=== PATIENT | female | born 1950 | race Caucasian/White ===

== ENCOUNTER → 2016-11-14 | Outpatient (CLI) | payer OTHER ==
[~2016-11-14] MED LIST: ALBUTEROL2.5 MG/0.5 INH; ASPIRIN81 M1 PO; BACTRIM DS 8001 TA1 PO; BASAGLAR K100 UNIT/1 SC; BENAZEPRIL HYDR20 MG PO; BREO ELLIPTA 11 EACH IH; CAPTOPRIL25 MG PO; CIPRO500 MG PO; DULE1ARO1 INH; FLAGYL500 MG PO; GLUCOPHAGE1000 MG PO; HYDROCHLOROTH12.5 M3 PO; HYDROCODONE BIT1 T11 PO; HYDRODIURIL25 MG PO; LANTUS100 U/ML SC; LISINOPRIL40 MG PO; LOVASTATIN20 MG PO; LOVENOX30 MG/0.3 SC; METFORMIN1000 MG PO; METOPROLOL TAR100 M1 PO; METOPROLOL100 MG PO; MEVACOR20 MG PO; MOBIC7.5 MG PO; MOTRIN800 MG PO; NORCO 7.5-3251 EACH PO; OMEPRAZOLE DR20 MG PO; ONE DAILY ESSE1 EACH PO; POTASSIUM CHLO10 ME4 PO; PRILOSEC20 M1 PO; PRILOSEC40 MG PO; VICODIN 5-3001 EACH PO; VICODIN 5/500 505 MG PO; VITAMIN D50000 I3 PO; ZANTAC 150150 MG PO; ZOFRAN8 M1 PO; [UNRECOGNIZED DRUG - OTHER] PO
== END | disposition home or self-care (01) ==
LOC: ORTHO 02:46
DX: S83.232A Complex tear of medial meniscus, current injury, left knee, initial encounter (principal); Z96.652 Presence of left artificial knee joint; X58.XXXA Exposure to other specified factors, initial encounter; Y93.89 Activity, other specified; Y92.89 Other specified places as the place of occurrence of the external cause; Y99.8 Other external cause status

== ENCOUNTER → 2016-11-21 | Day surgery (SDC) | payer OTHER ==
[~2016-11-21] VITALS: Ht 160 cm; Wt 82.6 kg
--- NOTE | ~2016-11-21 | PROC NOTE ---
[place], [place] PROCEDURE NOTE [id number] UNIT #: [id number] ROOM: DOCTOR: GARO WILDER MD BIRTHDATE: [birth year] DOS: 11/21/2016 PREOPERATIVE DIAGNOSIS: History of diverticulitis. POSTOPERATIVE DIAGNOSIS: Diverticulosis. PROCEDURE: Flexible sigmoidoscopy. ENDOSCOPIST: Garo Wilder MD DIRECTOR SAFETY COUNCIL: MS3. ANESTHESIA: MAC. INDICATIONS: This is a 65-year-old lady with a history of diverticulitis in the recent past who is here for a colonoscopy. The procedure and its complications were explained to the patient in detail. Complications that were discussed included but were not limited to bleeding, missed lesions and colon perforation. She agreed to proceed. DESCRIPTION OF PROCEDURE: After identifying the patient, the patient was brought to the operating suite and laid in the left lateral position. After IV sedation was administered, a timeout procedure was called and a digital rectal exam was performed. This was within normal limits. There was no blood or masses that could be palpated with the examining finger. At this point, an adult colonoscope was introduced into the anal canal and advanced sequentially into the rectum, sigmoid colon up to 40 cm from the anal verge. Despite multiple attempts, the scope could not be passed beyond this. Multiple areas of diverticulosis could be seen and also lot of edema could be seen in the area. Because the scope could not be advanced in a safe fashion beyond this area, I elected to abort the procedure at this point and withdraw the scope. The patient tolerated the procedure well. She was taken to the recovery room in stable fashion. Based on these findings, I would recommend the patient undergo another colonoscopy in 6 months or barium enema in the next few weeks. These findings were discussed with the patient's family and I will talk to the patient herself when she sees me in 2 weeks. Garo Wilder MD CM:PROCNOTE:PROCEDURE NOTE [id number] GARO WILDER MD
[2016-11-21 10:15] VITALS: BP 127/66
[2016-11-21 11:26] VITALS: BP 114/65
[2016-11-21 11:41] VITALS: BP 125/88
[2016-11-21 11:56] VITALS: BP 130/64
== END | disposition home or self-care (01) ==
LOC: SDC 11-17 08:00
DX: K57.30 Diverticulosis of large intestine without perforation or abscess without bleeding (principal); K63.89 Other specified diseases of intestine; E11.9 Type 2 diabetes mellitus without complications; J44.9 Chronic obstructive pulmonary disease, unspecified; F32.9 Major depressive disorder, single episode, unspecified; I10 Essential (primary) hypertension; K21.9 Gastro-esophageal reflux disease without esophagitis; Z90.710 Acquired absence of both cervix and uterus; Z98.51 Tubal ligation status; Z96.652 Presence of left artificial knee joint; Z80.9 Family history of malignant neoplasm, unspecified; Z53.8 Procedure and treatment not carried out for other reasons

== ENCOUNTER → 2017-02-06 | Outpatient (CLI) | payer OTHER | END | disposition home or self-care (01) | LOC: ORTHO 02:04 | DX: M16.12 Unilateral primary osteoarthritis, left hip (principal); Z96.652 Presence of left artificial knee joint ==

== ENCOUNTER → 2017-03-06 | Outpatient (CLI) | payer OTHER ==
[~2017-03-06] MED LIST changes: +NORCO 5-325 TA1 EACH PO; +NORVASC5 MG PO; +XANAX0.5 MG PO
--- NOTE | ~2017-03-06 | ST ---
[place], [place] EXERCISE STRESS TEST REPORT [id number] UNIT #: [id number] ROOM: DOCTOR: GIN ALVARADO MD BIRTHDATE: [birth year] DOS: 03/06/2017 INDICATIONS: Preoperative assessment prior to hip surgery, referred by Dr. Bullard. PROCEDURE: The patient was given a rapid infusion of regadenoson 0.4 mg intravenously followed by a saline flush. She felt lightheaded, but had no other symptoms. The electrocardiogram did show a normal heart rate response to the regadenoson infusion. She had no diagnostic electrocardiographic changes. Forty seconds after the infusion of regadenoson, she was given radionuclide intravenously. IMPRESSION: 1. Well tolerated infusion of regadenoson. 2. Please see the separately reported myocardial perfusion image report for further details of the patient's stress test results. GIN ALVARADO MD CM:STRESS:EXERCISE STRESS TEST REPORT [id number] GIN ALVARADO MD
[2017-03-06 11:25] LABS: BASO % 0.5 % (0.0-1.0); EOS # 0.1 10*3/uL (0.0-0.4); EOS % 1.6 % (1.0-4.0); HEMATOCRIT 37.3 % (37.0-47.0); LYMPH # 2.4 10*3/uL (1.3-4.4); LYMPH % 27.1 % (27.0-41.0); MEAN CELL VOLUME 89.7 fl (81.0-99.0); MEAN CORPUSCULAR HGB 28.8 pg (27.0-31.0); MEAN CORPUSCULAR HGB CONC 32.2 g/dl (33.0-37.0); MEAN PLATELET VOLUME 9.9 fl (9.6-12.3); MONO # 0.5 10*3/uL (0.1-1.0); MONO % 6.1 % (3.0-9.0); NEUT # 5.7 10*3/uL (2.3-7.9); NEUT % 64.6 % (47.0-73.0); PLATELET COUNT AUTOMATED 268 10*3/uL (130-400); RED BLOOD COUNT 4.16 10*6/uL (4.10-5.10); RED CELL DISTRI WIDTH 13.8 % (0-14.5); WHITE BLOOD COUNT 8.8 10*3/uL (4.8-10.8)
[2017-03-06 11:51] LABS: HEMOGLOBIN A1c 5.8 % (4.8-5.6)
[2017-03-06 11:55] LABS: ALBUMIN 3.7 gm/dl (3.1-4.5); ALKALINE PHOSPHATASE 73 U/L (45-117); BILIRUBIN, TOTAL 0.4 mg/dl (0.2-1.0); BUN 24 mg/dl (7-24); CARBON DIOXIDE 24 mmol/L (21-32); CHLORIDE 106 mmol/L (98-107); CHOLESTEROL 130 mg/dL (<200); EST GLOM FILT AFRICAN AMERICAN > 60 ml/min; GLUCOSE 128 mg/dL (65-99); HDL CHOLESTEROL 55 mg/dl (40-60); LDL CHOLESTEROL 42 mg/dL (9-159); POTASSIUM 3.7 mmol/L (3.5-5.1); SGOT/AST 20 IU/L (3-35); SGPT/ALT 31 U/L (12-78); SODIUM 139 mmol/L (136-145); TOTAL PROTEIN 7.6 gm/dL (6.4-8.2); TRIGLYCERIDES 163 mg/dl (<150); VLDL CHOLESTEROL 33 mg/dL (6-40)
[2017-03-06 12:01] LABS: FREE T4 1.27 ng/dl (0.76-1.46)
[2017-03-06 14:01] LABS: FOLIC ACID 17.89 ng/mL (>5.38); VITAMIN D, 25-HYDROXY 31.7 ng/mL (30-100)
== END | disposition home or self-care (01) ==
LOC: LAB 02:09 → CARD 02:09
PROVIDERS: Internal Medicine
DX: Z01.818 Encounter for other preprocedural examination (principal); R07.2 Precordial pain; R06.02 Shortness of breath

== ENCOUNTER → 2017-03-31 | Outpatient (CLI) | payer OTHER ==
[~2017-03-31] MED LIST changes: +TOUJEO SOL300 UNIT/1 SC
[2017-03-31 11:33] LABS: BILIRUBIN NEGATIVE (NEGATIVE); BLOOD 1+ (NEGATIVE); CLARITY SL CLOUDY (CLEAR); COLOR YELLOW (YELLOW); GLUCOSE NEGATIVE (NEGATIVE); KETONE NEGATIVE (NEGATIVE); LEUKO ESTERASE 1+ (NEGATIVE); NITRITE POSITIVE (NEGATIVE); PROTEIN NEGATIVE (NEGATIVE); UROBILINOGEN 0.2 E.U./dl (0.2-1.0)
[2017-03-31 11:37] LABS: BASO % 0.6 % (0.0-1.0); EOS # 0.2 10*3/uL (0.0-0.4); EOS % 2.9 % (1.0-4.0); HEMATOCRIT 37.8 % (37.0-47.0); HEMOGLOBIN 12.3 g/dl (12.0-16.0); LYMPH % 29.4 % (27.0-41.0); MEAN CELL VOLUME 91.3 fl (81.0-99.0); MEAN CORPUSCULAR HGB 29.7 pg (27.0-31.0); MEAN CORPUSCULAR HGB CONC 32.5 g/dl (33.0-37.0); MEAN PLATELET VOLUME 9.9 fl (9.6-12.3); MONO # 0.5 10*3/uL (0.1-1.0); MONO % 7.2 % (3.0-9.0); NEUT # 4.2 10*3/uL (2.3-7.9); NEUT % 59.6 % (47.0-73.0); PLATELET COUNT AUTOMATED 274 10*3/uL (130-400); RED BLOOD COUNT 4.14 10*6/uL (4.10-5.10); RED CELL DISTRI WIDTH 13.5 % (0-14.5)
[2017-03-31 11:42] LABS: BACTERIA 3+; WBC 31-40 wbc/hpf (0-5)
[2017-03-31 11:49] LABS: HEMOGLOBIN A1c 5.7 % (4.8-5.6)
[2017-03-31 12:09] LABS: ALBUMIN 3.9 gm/dl (3.1-4.5); ALKALINE PHOSPHATASE 73 U/L (45-117); BILIRUBIN, TOTAL 0.3 mg/dl (0.2-1.0); BUN 18 mg/dl (7-24); CARBON DIOXIDE 29 mmol/L (21-32); CHLORIDE 102 mmol/L (98-107); EST GLOM FILT AFRICAN AMERICAN > 60 ml/min; GLUCOSE 132 mg/dL (65-99); POTASSIUM 4.2 mmol/L (3.5-5.1); SGOT/AST 13 IU/L (3-35); SGPT/ALT 19 U/L (12-78); SODIUM 140 mmol/L (136-145); TOTAL PROTEIN 7.5 gm/dL (6.4-8.2)
[2017-03-31 15:21] LABS: BILIRUBIN NEGATIVE (NEGATIVE); BLOOD TRACE-INTACT (NEGATIVE); CLARITY SL CLOUDY (CLEAR); COLOR YELLOW (YELLOW); GLUCOSE NEGATIVE (NEGATIVE); KETONE NEGATIVE (NEGATIVE); LEUKO ESTERASE 2+ (NEGATIVE); NITRITE POSITIVE (NEGATIVE); PROTEIN NEGATIVE (NEGATIVE); SPECIFIC GRAVITY <= 1.005 (1.005-1.030); UROBILINOGEN 0.2 E.U./dl (0.2-1.0)
[2017-03-31 15:30] LABS: EPITHELIAL CELLS 15-20
[2017-03-31 15:31] LABS: BACTERIA 3+; URINE REFLEX COMMENT YES (NO); WBC 21-30 wbc/hpf (0-5)
== END | disposition home or self-care (01) ==
LOC: LAB 09:25
PROVIDERS: Orthopaedic Surgery
DX: Z01.818 Encounter for other preprocedural examination (principal); N39.0 Urinary tract infection, site not specified; M16.12 Unilateral primary osteoarthritis, left hip; J45.909 Unspecified asthma, uncomplicated; Q25.46 Tortuous aortic arch; R73.09 Other abnormal glucose; Z96.642 Presence of left artificial hip joint

== ENCOUNTER 2017-04-09 01:16 | Inpatient (IN) | payer OTHER ==
[2017-04-06 10:58] LABS: BILIRUBIN NEGATIVE (NEGATIVE); BLOOD NEGATIVE (NEGATIVE); CLARITY CLEAR (CLEAR); COLOR YELLOW (YELLOW); GLUCOSE NEGATIVE (NEGATIVE); KETONE NEGATIVE (NEGATIVE); LEUKO ESTERASE TRACE (NEGATIVE); NITRITE NEGATIVE (NEGATIVE); UROBILINOGEN 0.2 E.U./dl (0.2-1.0)
[2017-04-06 11:16] LABS: CALCIUM OXALATE CRYSTALS TRACE; RBC 0-2 rbc/hpf (0-2)
[~2017-04-09] VITALS: Ht 160 cm; Wt 80.7 kg
[2017-04-09] VITALS (8 sets, daily range): BP systolic 130–153; BP diastolic 72–86
--- NOTE | ~2017-04-09 | PR ---
[place], [place] PROGRESS NOTE NAME: DAVID PATTON UNIT #: [id number] ROOM: 532 DOCTOR: VILMA GUERRA MD BIRTHDATE: [birth year] DOS: 04/12/2017 SUBJECTIVE: The patient is feeling well except for pain at left hip surgical site and also that she is unable to move her bowels. OBJECTIVE: VITAL SIGNS: Blood pressure 116/62, heart rate of 92 beats per minute, afebrile, breathing normally. IMPRESSION: 1. Opioid-induced constipation to be treated with Dulcolax suppository. 2. Acute over chronic kidney failure with elevation of BUN and creatinine elevated at 38 and 2.15 now, to be treated with hydration and serum electrolytes will be monitored daily. 3. Postoperative anemia with hemoglobin of 7.4, dropped from 9.5 before surgery and will be followed. 4. Type 2 diabetes mellitus. We will monitor blood sugars and treat accordingly. Sugars seem to be reasonably controlled. 5. Benign essential hypertension, being monitored and controlled. 6. Mixed hyperlipidemia, titrated with simvastatin. 7. Benign essential hypertension with blood pressure staying on the lower side after surgery. I will stop her amlodipine for now and monitor blood pressures. VILMA GUERRA MD CM:PNTRANS [phone] VILMA GUERRA MD 04/12/172144 interface
--- NOTE | ~2017-04-09 | PR ---
[place], [place] PROGRESS NOTE NAME: DAVID PATTON UNIT #: [id number] ROOM: 532 DOCTOR: VILMA GUERRA MD BIRTHDATE: [birth year] DOS: 04/11/2017 SUBJECTIVE: The patient is status post left total hip replacement by Dr. Kowalski on , apparently admitted under the care of Dr. Vin Doss and then transferred under the care of Dr. Juan Miguel schwartz on 04/11/2017. The patient under the care of Dr. Monica Bullard, I am doing a progress note on this patient after her left total hip replacement. The patient was not signed out to me. The patient says she is doing well after the left hip replacement. Except for the pain at surgical site, she has no other complaints. OBJECTIVE: GENERAL APPEARANCE: The patient is alert and oriented x 3, in no visible distress. VITAL SIGNS: Blood pressure 117/87, heart rate 95 beats per minute, breathing 20 times per minute, temperature 98.4 degrees Fahrenheit. HEENT AND NECK: Exam within normal limits. CARDIOVASCULAR SYSTEM: Heart rate is regular in rate and rhythm. S1 and S2 normally audible. LUNGS: Clear to auscultation. ABDOMEN: Soft, nontender. No obvious organomegaly. Bowel sounds are present. EXTREMITIES: Without significant cyanosis or edema. IMPRESSION: 1. The patient is status post left total hip replacement by Dr. Kowalski on . She is doing well except for some pain at the surgical site and undergoing physical therapy. White cell count of 12,600, hemoglobin of 8, which has dropped from 9.5 yesterday. We will continue to follow. Venous ultrasound of the left upper extremity showed no DVT. 2. Stage 3B chronic kidney disease. BUN and creatinine 17 and 1.6, to be followed. I will order serum electrolytes, BUN and creatinine for tomorrow. 3. Type 2 diabetes mellitus. We will monitor blood sugars and treat accordingly. 4. Mixed hyperlipidemia, to be followed and treated. 5. Benign essential hypertension. Blood pressures are being monitored and controlled. [place], [place] PROGRESS NOTE NAME: DAVID APTTON UNIT #: [id number] ROOM: 532 DOCTOR: VILMA GUERRA MD BIRTHDATE: [birth year] VILMA GUERRA MD CM:OLIVER [phone] VILMA GUERRA MD 04/11/172227 interface
--- NOTE | ~2017-04-09 | PR ---
[place], [place] PROGRESS NOTE NAME: DAVID PATTON UNIT #: [id number] ROOM: 532 DOCTOR: MATT ORTIZ MD BIRTHDATE: [birth year] DOS: SUBJECTIVE: The patient is doing fine without any complaints this morning. She is a little upset that she had to receive blood transfusion. OBJECTIVE: VITAL SIGNS: Graphic trend shows the pressure of 100/54, pulse of 102, respirations 20, temperature 98.9. LUNGS: Clear. HEART: Regular. ABDOMEN: Obese, soft, nontender. EXTREMITIES: No edema. Left hip site looks clean. Sutures intact. LABORATORY DATA: Glucose 133, BUN 35, creatinine 1.23, sodium 138, potassium 5.2, chloride 110, bicarbonate 21. WBC count is 9.4, hemoglobin is 6.9. ASSESSMENT AND PLAN: 1. Status post left hip replacement. Postoperatively, the patient has developed anemia. We will go ahead and arrange for ferritin. I did not want to do an iron since she has already been started on blood transfusion. 2. Constipation, possibly from opioid. Dulcolax tablet was given yesterday. We will order a suppository today. 3. Benign hypertension, controlled. Pressures are on the low side. 4. Hyperkalemia from renal failure. It is improving. No changes made in the treatment. MATT ORTIZ MD CM:PNTRANS [id number] MATT ORTIZ MD 04/13/17 1536 interface
--- NOTE | ~2017-04-09 | O ---
[place], [place] OPERATIVE NOTE NAME: DAVID PATTON UNIT #: [id number] ROOM: 532 DOCTOR: KARINA GAVINWADE BIRTHDATE: [birth year] DOS: 04/09/2017 PREOPERATIVE DIAGNOSIS: Left hip severe osteoarthritis. POSTOPERATIVE DIAGNOSIS: Left hip severe osteoarthritis. PROCEDURE: Left hip total hip arthroplasty. SURGEON: Wade Kowalski DO FIRST ASSISTANTS: Chivo Daley Reink and Fadi. ANESTHESIA: LAKESHIA Rios. INDICATIONS: The patient is a 66-year-old female with a history of severe osteoarthritis of the left hip, which is impairing with her mobility. The patient had significant pain, weakness and decreased motion, which has been unrelieved with conservative care. The risks and benefits of the procedure were explained to the patient preoperatively. Preoperative labs and x-rays were obtained including preoperative medical clearance. PROCEDURE IN DETAIL: The left hip was marked in the holding area. The patient was brought to the operative suite. The patient was placed on the operative table. A general anesthetic with endotracheal intubation was performed. The patient was placed in a lateral decubitus position with the left lower extremity superior. A Chama hooker was utilized. A time-out was performed. The left lower extremity was prepped and draped in the usual orthopedic fashion. The posterior incision was marked with a marking pen. The area was injected with Marcaine 0.5% with epinephrine. The incision was made sharply with a scalpel. Subcutaneous tissue was spread down to the level of the gluteus fascia. Electrocautery was used to maintain hemostasis. The gluteus fascia was divided along its fibers as was the gluteus musculature. This was retracted with self-retaining retractors. The short external rotators were identified. The piriformis was tagged with a suture and released from the greater tuberosity and retracted posteriorly. The capsule was identified and released in a T-shaped fashion. The hip was dislocated and the guide was placed for the calcar cut. The calcar cut was made with an oscillating saw. Attention was turned to the acetabulum. Osteophytes and soft tissue debris were removed from the acetabulum. The reaming began with a 42 mm reamer and progressed to a 55 mm reamer. The positioning was evaluated throughout the procedure. A trial acetabular shell was put into place and noted to have good fit and fill. The trial was removed and a G7 56 mm shell was pressfit into place. The prosthetic acetabulum was covered with a trial liner. Attention was turned to the femoral side. The femoral canal was prepared using a box osteotome followed by a straight and broaches, beginning with a size 1 and progressing to a size 9 broach. This was noted to have adequate fit and fill and was stable. Various lengths of the neck were tried but the -6 neck length with a 36 mm neck was found to have the best range of motion and [place], [place] OPERATIVE NOTE NAME: DAVID PATTON UNIT #: [id number] ROOM: [facility] DOCTOR: WADE KOWALSKI DO BIRTHDATE: [birth year] stability when the trials were reduced. The trials were removed and the area was copiously irrigated with normal saline. The taper lock 9 x 137 offset cementless was pressfit into place. This was followed by placement of the modular head component 36 mm with a -6 mm neck, which was a cold welded into place. The G7 acetabular liner high wall was snapped into place with the high wall placed posteriorly. The acetabular shell and liner were again evaluated for stability as was the femoral stem and modular head. The reduction was performed. The hip was taken through a range of motion with flexion past 90 and internal and external rotation without evidence of instability. Extension was obtained at 10 degrees. The area was copiously irrigated with normal saline and closed in a layered fashion with 0 Vicryl for the short external rotators including piriformis followed by 0 Vicryl for the gluteus fascia and 2-0 Vicryl for the adipose layer. The skin was closed with sonny. The area was again injected with Marcaine 0.5% with epinephrine. Xeroform, 4 x 4s, ABDs, and Tegaderm were used to complete the dressing. The patient was placed in an abduction pillow and returned to a supine position. The anesthetic was reversed. The patient was extubated and taken to the recovery room in satisfactory condition. Sponge and needle count correct. ESTIMATED BLOOD LOSS: 500 mL. SPECIMENS: Bone and soft tissue. DRAINS: None. PACKING: None. COMPLICATIONS: None. FINDINGS: Severe osteoarthritis of the left hip. IMPLANTS: Biomet Taperloc complete primary stem 9 x 137, modular head component -6 mm neck, G7 thinned acetabular shell 4 hole, G7 acetabular liner high wall. [place], [place] OPERATIVE NOTE NAME: DAVID PATTON UNIT #: [id number] ROOM: [facility] DOCTOR: WADE KOWALSKI DO BIRTHDATE: [birth year] WADE KOWALSKI DO CM:OPRECORD:OPERATIVE NOTE 1411 [id number] WADE KOWALSKI DO 04/20/17 1444 interface
--- NOTE | ~2017-04-09 | PR ---
[place], [place] PROGRESS NOTE NAME: DAVID PATTON UNIT #: [id number] ROOM: 532 DOCTOR: MATT ORTIZ MD BIRTHDATE: [birth year] DOS: SUBJECTIVE: The patient states that she still has not been able to have a BM after the Dulcolax suppository was given. OBJECTIVE: VITAL SIGNS: Graphic trend shows pressure 113/61, pulse of 90, respirations 18, temperature 100.1. LUNGS: Diminished breath sounds. No wheezes, rales or rhonchi heard. HEART: Regular. ABDOMEN: Obese. EXTREMITIES: Without any edema. Left hip site looks fine. LABORATORY DATA: WBC count is normal at 9.2, hemoglobin 8.6, hematocrit 27.2. BMP: Glucose 135, BUN 28, creatinine 1.03. Electrolytes were normal. ASSESSMENT AND PLAN: 1. Anemia, most likely anemia of postoperative blood loss anemia. The patient has been given blood transfusion and hemoglobin is up to 8.6. 2. Chronic renal failure from diabetic nephropathy with hyperkalemia with acute worsening of the kidney functions. They seem to have stabilized after the IV fluids were given. 3. Constipation. Dulcolax suppositories to be tried again 4. Adult failure to thrive following a hip replacement. The patient to go to shelter today. MATT ORTIZ MD CM:PNTRANS [phone] MATT ORTIZ MD 04/14/17 1335 interface
--- NOTE | ~2017-04-09 | DS ---
[place], [place] DISCHARGE SUMMARY [id number] UNIT #: [id number] ROOM: 532 DOCTOR: MATT ORTIZ MD BIRTHDATE: [birth year] DOS: 04/14/2017 DIAGNOSES: 1. Hip replacement with adult failure to thrive for PT at the rehabilitation center. 2. Vitamin D deficiency. 3. Anemia, postoperative blood loss anemia. The patient did receive blood transfusion, hemoglobin is up to normal. 4. Type 2 diabetes mellitus, insulin-dependent. 5. Benign hypertension. 6. Chronic renal insufficiency, stage III. 7. Mixed hyperlipidemia. DISCHARGE MEDICATIONS: Aspirin 81 mg daily, lovastatin 20 daily, metoprolol 100 daily, DuoNeb q.i.d. p.r.n. for shortness of breath, metformin 1000 b.i.d., ranitidine 150 b.i.d., lisinopril 40 daily, Breo Ellipta 2 inhalation daily, Proventil 1 puff q.4 h. p.r.n., Basiklar 16 units subcutaneous daily, Darby 5 twice a day p.r.n., Xanax 0.5 at bedtime p.r.n., Lovenox to be decided by Dr. Kowalski. HOSPITAL COURSE: The patient is 66 years old, who had a left hip replacement. After a hip replacement by Dr. Kowalski, patient was admitted to the floor. Please refer to H and P dictated by Dr. Doss for details. After admission, the patient was continued on pain medications, Cornejo catheter was inserted and then removed at a later date. She did complain of some swelling in the left lower leg and venous Doppler was done, which showed no evidence of DVT. She did develop acute worsening of kidney functions. She does have chronic renal disease. This was treated with IV fluids, the hyperkalemia. Kidney function seems to be back to her baseline. She also was noted to have anemia postoperatively, was transfused and her hemoglobin has come up. The patient is relatively stable this morning, only complaint is that she continues to be constipated even after multiple attempts at giving her Dulcolax. So, the patient will be placed on MiraLax 17 grams twice a day at the detention. The patient is otherwise stable and can be discharged to the detention today. [place], [place] DISCHARGE SUMMARY NAME: DAVID PATTON UNIT #: [id number] ROOM: 532 DOCTOR: MATT ORTIZ MD BIRTHDATE: [birth year] MATT ORTIZ MD CM:GLORIA [phone] MATT ORTIZ MD 04/14/17 1335 interface
[~2017-04-09 01:16] MED LIST changes: -MEVACOR20 MG PO
[2017-04-09] MEDS ORDERED: PROVENTIL HFA6.7 GM INH (09:58)
[2017-04-09] MEDS ORDERED: BASAGLAR SC (09:59)
--- NOTE | 2017-04-09 10:01 | NUR ---
PHONED PATIENT'S PHARMACY TO VERIFY HOME MEDICATIONS, WILL REVIEW THESE WITH THE PATIENT UP ARRIVAL TO THE FLOOR AFTER SURGERY.
--- NOTE | 2017-04-09 17:00 | NUR ---
Time: 1699 A 66 year old F admitted to under services of MARKELL VERDIN DO. Pt. arrived via stretcher from OP/ADMIT. Chief complaint: S/P LEFT TOTAL HIP . STEVE BROWN
--- NOTE | 2017-04-09 17:28 | NUR ---
PO PHENERGAN FOR C/O NAUSEA. SEE EMAR.
--- NOTE | 2017-04-09 21:50 | NUR ---
PT STATES THAT PAIN MED IS STARTING TO BE EFFECTIVE. REPOSITIONED FOR COMFORT.
--- NOTE | 2017-04-09 23:58 | NUR ---
PRN DILAUDID GIVEN FOR PAIN.
--- NOTE | 2017-04-09 23:58 | NUR ---
WHILE IN TO ASSESS PATIENT AT THIS TIME, ENCOURAGED THE PATIENT TO USE INCENTIVE SPIROMETER EVERYTIME THAT SHE IS AWAKE, AND THAT IN THE MORNING WE WOULD BE GETTING HER UP IN THE CHAIR TO EAT BREAKFAST. THIS NURSE STATED TO THE PATIENT THAT THESE ARE VERY IMPORTANT TO DO, BECAUSE WITH THE PATIENT LAYING IN BED FOR TOO LONG SHE COULD DEVELOP PNEUMONIA. PATIENT IS IN AGREEANCE WITH THIS AND STATED SHE WILL GET UP IN THE MORNING
[2017-04-10] VITALS: BP 120/63
--- NOTE | 2017-04-10 00:58 | NUR ---
PRN DILAUDID EFFECTIVE PT. SLEEPING COMFORTABLY.
--- NOTE | 2017-04-10 03:43 | NUR ---
24 HR chart check completed.
--- NOTE | 2017-04-10 06:32 | NUR ---
AT THIS TIME, THIS NURSE BROUGHT RECLINER CHAIR INTO PATIENT ROOM AND TOLD THE PATIENT WE WOULD BE GETTING UP. THE PATIENT STATED THAT SHE WANTED TO TRY AND GO BACK TO SLEEP AND WOULD GET UP IN A LITTLE BIT, THIS NURSE REINFORCED HOW IMPORTANT IT IS FOR THE PATIENT TO GET UP AND OUT OF BED SO THAT SHE WILL NOT DEVELOP PNEUMONIA. THE PATIENT STILL STATED THAT SHE WOULD LIKE TO SLEEP FOR A LITTLE BIT LONGER. IT WAS PASSED ON TO THE NURSES AIDE WHO STATED SHE WOULD TELL THE MORNING AIDE TO ASSIST THE MORNING NURSE IN GETTING THE PATIENT UP AND OUT OF BED FOR BREAKFAST.
[2017-04-10 07:40] LABS: BASO % 0.3 % (0.0-1.0); EOS # 0.2 10*3/uL (0.0-0.4); EOS % 1.4 % (1.0-4.0); HEMATOCRIT 29.9 % (37.0-47.0); HEMOGLOBIN 9.5 g/dl (12.0-16.0); LYMPH # 2.6 10*3/uL (1.3-4.4); LYMPH % 23.9 % (27.0-41.0); MEAN CELL VOLUME 95.2 fl (81.0-99.0); MEAN CORPUSCULAR HGB 30.3 pg (27.0-31.0); MEAN CORPUSCULAR HGB CONC 31.8 g/dl (33.0-37.0); MONO # 1.2 10*3/uL (0.1-1.0); MONO % 10.7 % (3.0-9.0); NEUT # 6.8 10*3/uL (2.3-7.9); NEUT % 63.3 % (47.0-73.0); PLATELET COUNT AUTOMATED 251 10*3/uL (130-400); RED BLOOD COUNT 3.14 10*6/uL (4.10-5.10); RED CELL DISTRI WIDTH 13.5 % (0-14.5); WHITE BLOOD COUNT 10.7 10*3/uL (4.8-10.8)
[2017-04-10 07:48] LABS: INTERNATIONAL NORM RATIO 1.1 (2.0-3.5)
[2017-04-10 08:00] VITALS: BP 110/56
[2017-04-10 08:01] LABS: CREATININE 1.66 mg/dL (0.55-1.02); MAGNESIUM 1.6 mg/dL (1.5-2.1); PHOSPHOROUS 4.7 mg/dL (2.5-4.9); POTASSIUM 4.9 mmol/L (3.5-5.1); TOTAL PROTEIN 6.2 gm/dL (6.4-8.2)
--- NOTE | 2017-04-10 08:46 | NUR ---
ADMINISTERED IV DILAUDID PER PT REQUEST FOR LEFT HIP PAIN RATED. WILL MONITOR FOR EFFECTIVENESS.
--- NOTE | 2017-04-10 09:04 | NUR ---
PHYSICAL THERAPY PAtient evaluated on 5, full evaluation to follow. Continue with PT as per plan of care with fall, ANKUR left LE, WABT, ANKUR precautions and mod (A) x 2 precautions. Will requirwe SNF for impaired mobility in order to return to home at (I) PLOF. PAtient is moderate complexity via chart review, tests and evaluation: [id number]. Thank you for this referral. Sherry Godinez,PT
--- NOTE | 2017-04-10 09:09 | NUR ---
Clinical Specialist in to talk to patient. Patient states lives at Home with a friend. There are 0 steps in the home. Physician: Juan Miguel Pharmacy: [facility] Home health services: Yes, active with [facility] Patient's level of ADLs: MINIMAL ASSIST Patient has working utilities: yes DME: DILL[facility] Arias Follow-up physician's appointment after d/c: Self Does patient want to access PORTAL?: no Discharge plan Patient had a total Left hip replacement and would like to be referred to [facility] for rehab. Will make referral, will require precert.. BHARATHI ELLSWORTH
--- NOTE | 2017-04-10 09:44 | NUR ---
Patient with total hip replacement has asked to be referred to [facility]. Contacted facility, faxed referral. Will fax OT eval when available, will require precert.
--- NOTE | 2017-04-10 09:55 | NUR ---
OT EVALUATION COMPLETED. OT DETERMINED MODERATE COMPLEXITY FROM EVALUATION AND CHART REVIEW
--- NOTE | 2017-04-10 10:35 | NUR ---
Faxed OT eval for precert to [facility]. Waiting on acceptance and auth
--- NOTE | 2017-04-10 10:51 | NUR ---
[facility] has accepted this patient and is initiating precert. Waiting on auth
--- NOTE | 2017-04-10 11:25 | NUR ---
ADMINISTERED IV PHENEGRAN PER PT REQUEST FOR NAUSEA. WILL MONITOR FOR EFFECTIVENESS.
--- NOTE | 2017-04-10 11:27 | NUR ---
Nutritional Support Services Note: Dx of total left hip. Appetite is good for meals. Regular diet as ordered. Boost Glucose Control one can with meals and prune juice q am to help relieve constipation. No other nutrition intervention needed at this time. Will follow as needed. Krystle Dalton
[2017-04-10 12:00] VITALS: BP 115/60
--- NOTE | 2017-04-10 12:10 | NUR ---
Patient resting quietly with no c/o discomfort. Respirations easy and regular. Vital signs stable. No overt distress. MATTHEW TA
--- NOTE | 2017-04-10 12:59 | NUR ---
PHYSICAL THERAPY Mrs Johnson was seen this PM 1:1 for her physical therapy session. Pt up in her bedside chair and was medicated by nursion and very lethargic. I checked with Pt's nurse and she said that she knew how medicated she was. Kesha would no arouse. Nursing said that they would put Pt back later today, but not at this time MITALI PRADHAN DIE REPAIRER STAMPING.
--- NOTE | 2017-04-10 14:17 | NUR ---
CALLED DR ORTIZ FOR REQUEST TO DC PHENEGRAN AND START IV ZOFRAN PT IS VERY LETHARGIC SINCE PHENEGRAN ADMINISTRATION AT 1125. PT SITTING IN CHAIR SLEEPING. RESPS REG EASY WITH NO DISTRESS NOTED. CALL HEATH IN REACH.
[2017-04-10 16:00] VITALS: BP 112/70
--- NOTE | 2017-04-10 16:35 | NUR ---
PT RESTING IN BED. C/O LEFT HIP PAIN, RATES PAIN 7 OR 8 ON PAIN SCALE 0-10. MEDICATED WITH DILAUDID IV PER PRN ORDER, SEE EMAR. SCD TO RIGHT LEG. DRESSING LEFT HIP D/I. CALL LIGHT IN REACH. SEE SHIFT ASSESSMENT.
--- NOTE | 2017-04-10 16:40 | NUR ---
DR. COLLINS IN TO SEE PT.
--- NOTE | 2017-04-10 17:10 | NUR ---
PT SLEEPING IN BED. RESP-EASY AND REGULAR. MEDICATIONS SEEM TO BE EFFECTIVE. CALL LIGHT IN REACH.
--- NOTE | 2017-04-10 18:48 | NUR ---
PT RESTING IN BED WITH VISITOR AT HER SIDE. NO C/O AT THIS TIME. CALL LIGHT IN REACH.
[2017-04-10 20:00] VITALS: BP 119/52
--- NOTE | 2017-04-10 22:32 | NUR ---
24 HR chart check completed.
[2017-04-11] VITALS: BP 120/55
--- NOTE | 2017-04-11 05:00 | NUR ---
PT RESTING QUIETLY IN BED. CONT. TO C/O BILATERAL FOOT PAIN. PT STATES THAT IT IS MORE ANKLE. GRIPPER SOCKS REMOVED, TEDS READJUSTED, AND SCD'S PLACED HIGHER UP ON CALF. PT STATES THAT HELPED RELIEVE THE PAIN. CALL LIGHT IN REACH.
[2017-04-11 05:50] LABS: BASO % 0.3 % (0.0-1.0); EOS # 0.2 10*3/uL (0.0-0.4); EOS % 1.6 % (1.0-4.0); HEMATOCRIT 24.8 % (37.0-47.0); LYMPH # 1.9 10*3/uL (1.3-4.4); LYMPH % 15.3 % (27.0-41.0); MEAN CELL VOLUME 92.5 fl (81.0-99.0); MEAN CORPUSCULAR HGB 29.9 pg (27.0-31.0); MEAN CORPUSCULAR HGB CONC 32.3 g/dl (33.0-37.0); MEAN PLATELET VOLUME 10.1 fl (9.6-12.3); MONO # 1.3 10*3/uL (0.1-1.0); MONO % 9.9 % (3.0-9.0); NEUT # 9.1 10*3/uL (2.3-7.9); NEUT % 72.3 % (47.0-73.0); PLATELET COUNT AUTOMATED 217 10*3/uL (130-400); RED BLOOD COUNT 2.68 10*6/uL (4.10-5.10); RED CELL DISTRI WIDTH 13.3 % (0-14.5); WHITE BLOOD COUNT 12.6 10*3/uL (4.8-10.8)
[2017-04-11 08:00] VITALS: BP 96/50
--- NOTE | 2017-04-11 10:15 | NUR ---
THERAPY IN WITH PT
--- NOTE | 2017-04-11 11:16 | NUR ---
PT REQUESTED AND GIVEN PERCOCET FOR C/O HIP PAIN. PT RATES PAIN 6/10. WILL MONITOR . CALL LIGHT WITHIN REACH
--- NOTE | 2017-04-11 11:26 | NUR ---
Pt seen for PT this am. Pt in be when Tx began. P transferred supine to sit with mod/Max a x 1 with 75% vc for hand placement and sit to stand with mod a x 1 and vc for safety awareness. TAX ADJUSTER discussed ANKUR precautions and pt verbalized understanding. Pt performed the following ANKUR ex LLE x 15 reps each with vc for proper ex technique in supine in bed: ankle pumps, quad sets, glute sets, AA heel slides, and AA abduction. Pt ambulated 30 ft x 1 with ww and 50% vc for sequencing with min a x 2 and also vc for correct hand placement in ww and for erect posture. Pt Tolerated Tx without incident. Pt in gerichair as per nsg for lunch after Tx. Abduction pillow intact. No giovanni pumps replaced as per nsg. Pt recieved 25 min 08/17 Tx with therapist this date. Cont with POC to achieve established PT goals. Angel, TAX ADJUSTER
[2017-04-11 12:00] VITALS: BP 122/72
--- NOTE | 2017-04-11 12:44 | NUR ---
PERCOCET EFFECTIVE, PER PT . WILL MONITOR
[2017-04-11 16:00] VITALS: BP 117/87
--- NOTE | 2017-04-11 17:12 | NUR ---
PT REQUESTED AND GIVEN PERCOCET FOR C/O HIP PAIN. WILL MONITOR PT RATES PAIN 01/24. CALL LIGHT WITHIN REACH. FAMILY AT BEDSIDE
[2017-04-11 20:00] VITALS: BP 94/54
--- NOTE | 2017-04-11 21:26 | NUR ---
GAVE PATIENT TYLENOL FOR TEMP OF 99.9 AND PERCOCET FOR PAIN WILL REASSESS FOR EFFECTIVENESS OF MEDICATION
[2017-04-12] VITALS: BP 93/62
[2017-04-12 06:40] LABS: BASO % 0.2 % (0.0-1.0); EOS # 0.3 10*3/uL (0.0-0.4); EOS % 2.7 % (1.0-4.0); HEMATOCRIT 22.8 % (37.0-47.0); HEMOGLOBIN 7.4 g/dl (12.0-16.0); LYMPH # 2.5 10*3/uL (1.3-4.4); LYMPH % 24.6 % (27.0-41.0); MEAN CELL VOLUME 93.4 fl (81.0-99.0); MEAN CORPUSCULAR HGB 30.3 pg (27.0-31.0); MEAN CORPUSCULAR HGB CONC 32.5 g/dl (33.0-37.0); MEAN PLATELET VOLUME 10.4 fl (9.6-12.3); MONO # 0.8 10*3/uL (0.1-1.0); MONO % 7.6 % (3.0-9.0); NEUT # 6.5 10*3/uL (2.3-7.9); NEUT % 63.7 % (47.0-73.0); PLATELET COUNT AUTOMATED 210 10*3/uL (130-400); RED BLOOD COUNT 2.44 10*6/uL (4.10-5.10); RED CELL DISTRI WIDTH 13.5 % (0-14.5); WHITE BLOOD COUNT 10.3 10*3/uL (4.8-10.8)
[2017-04-12 07:05] LABS: CREATININE 2.15 mg/dL (0.55-1.02); POTASSIUM 4.9 mmol/L (3.5-5.1)
--- NOTE | 2017-04-12 07:53 | NUR ---
PATIENT RESTING IN BED FAMILY IN ROOM, TOLERATED MORNING MEDICATIONS. CALL LIGHT IN REACH WILL REASSESS PATIENT
[2017-04-12 08:00] VITALS: BP 116/62
[2017-04-12 12:00] VITALS: BP 98/54
--- NOTE | 2017-04-12 12:28 | NUR ---
Pt seen this am for PT. Pt reports L hip pain 03/26 this date with increase in L groin pain from yesterday. Pt performed the following supine ex increased to 20 reps each (inc from x 15 reps) LLE: ankle pumps, quad sets, glute sets, AA heelslides, and AA abduction. AAROM L hip approx: 40 degree flexion, and 15 degrees abduction. Pt then transferred supine to sit and sit to stand with min/mod a x 1 to ww followed by ambulation with ww 50 ft x 1 with min a x 1 and sba x 1 with verbal cues for increased step length LLE and to maintain erect posture and kylah inside ww. Pt in gerichair and abduction pillow in place at end of Tx. Tolerated Tx without incident. Improved ambulation distance this date. Cont with POC to achieve established PT goals. Pt received 25 min / Tx with therapist this date. Angel, RANGE MANAGEMENT SPECIALIST
[2017-04-12 16:00] VITALS: BP 103/54
--- NOTE | 2017-04-12 18:59 | NUR ---
PERCOSET 5/325 MG GIVEN FPOR C/O GENERALIZED PAIN, 04/26.
[2017-04-12 20:00] VITALS: BP 120/50
[2017-04-13] VITALS (10 sets, daily range): BP systolic 98–115; BP diastolic 54–66
--- NOTE | 2017-04-13 01:09 | NUR ---
PRN PAIN MED GIVEN FOR 8/10 LEFT HIP PAIN.
[2017-04-13 06:51] LABS: POTASSIUM 5.2 mmol/L (3.5-5.1)
[2017-04-13 06:52] LABS: CREATININE 1.23 mg/dL (0.55-1.02)
[2017-04-13 07:23] LABS: BASO % 0.1 % (0.0-1.0); EOS # 0.3 10*3/uL (0.0-0.4); EOS % 2.8 % (1.0-4.0); HEMATOCRIT 21.8 % (37.0-47.0); HEMOGLOBIN 6.9 g/dl (12.0-16.0); LYMPH % 21.7 % (27.0-41.0); MEAN CORPUSCULAR HGB 29.7 pg (27.0-31.0); MEAN CORPUSCULAR HGB CONC 31.7 g/dl (33.0-37.0); MEAN PLATELET VOLUME 10.6 fl (9.6-12.3); MONO # 1.1 10*3/uL (0.1-1.0); MONO % 11.5 % (3.0-9.0); NEUT # 5.9 10*3/uL (2.3-7.9); PLATELET COUNT AUTOMATED 240 10*3/uL (130-400); RED BLOOD COUNT 2.32 10*6/uL (4.10-5.10); RED CELL DISTRI WIDTH 13.4 % (0-14.5); WHITE BLOOD COUNT 9.4 10*3/uL (4.8-10.8)
--- NOTE | 2017-04-13 09:48 | NUR ---
PHYSICAL THERAPY Mrs Johnson seen this AM 1:1, Pt supine in bed with SCD on and abduction pillow on, left his pin around 7/10 this AM visit. Start with rom to left LE SLR to help with her pain before sitting up and gait. Transfer supine/sit MOD A X 1, sitting balance once up supervision X 1, X 6 min with no LOB. Sit/stand up on wheeled walker standing balance MOD A X 1, followed by pivot onto Pt's bedside commode. Followed by sit/stand another standing balance MOD A X 1. Then gait 20' to her bedside chair with cueing for walker, gait, and WBAT left LE and did well with this, just slow gait due to her pain, no LOB. Up in her bedside chair, call light, tray in front and breakfast coming, Pt having no other complaints, treatment time 25 min. MITALI PRADHAN TALENT SOURCER.
--- NOTE | 2017-04-13 10:35 | NUR ---
pT SEEN THIS AM FOR 1:1 OT. PT SITTING IN BEDSIDE CHAIR WITH SON PRESENT. PT C/O PAIN 8/10 IN L HIP. PT UNABLE TO CALL PRECAUTIONS FOR HIP. URBINA EDUCATED PATIENT ON HIP PRECAUTIONS. URBINA EDUCATED PATIENT ON USE OF ANTHROPOLOGIST PHYSICAL TO DOFF SOCKS AND USE OF SOCK AID TO DON SOCKS. PT REQUIRED MOD A TO DOFF/DON L SOCK USING ANTHROPOLOGIST PHYSICAL AND SOCK AID. URBINA EDUCATED PATIENT ON USE OF LH SPONGE FOR LB BATHING WITH GOOD UNDERSTANDING AND RETURN DEMONSTRATION. URBINA EDUCATED AND DEMONSTRATED USE OF ANTHROPOLOGIST PHYSICAL TO DON EALSTIC WAIST PANTS. PT REQUIRED MAX A TO DON PANTS USING ANTHROPOLOGIST PHYSICAL WITH MAX VC FOR CORRECT TECHNIQUE. URBINA EDUCATED PATIENT ON DONNING AFFECTED SIDE FIRST. STS FROM CHAIR WITH ARMS AT MOD A WITH VC FOR HAND PLACEMENT TO PUSH UP FROM CHAIR WITH ARMS. PT UNABLE TO DON PANTS OVER HIPS SECONDARY TO C/O FATIGUE AND DECREASED STANDING ENDURANCE. PT RETURNED TO SIT IN CHAIR. PT DOFFED PANTS USING ANTHROPOLOGIST PHYSICAL AT MIN A. PT ABLE TO RECALL PRECAUTIONS WHEN ASKED AT END OF TREATMENT. PT WOULD BENEFIT FROM SKILLED SERVICES TO INCREASE INDEPENCE IN adl PERFORMANCE, EDUCATION OF ae FOR adlS, BALANCE, STANDING ENDURANCE AND TRANSFERS. CONTINUE PLAN OF CARE. TOTAL TIME WITH PATIENT: 17 MINS. CIARA CHAPARRO/Yasmani
--- NOTE | 2017-04-13 13:05 | NUR ---
PHYSICAL THERAPY Pt was not seen this PM for her physical therapy gait. Pt getting blood this afternoon. MITALI PRADHAN DEPUTY CONTROLLER.
[2017-04-13 14:42] LABS: BASO % 0.2 % (0.0-1.0); EOS # 0.3 10*3/uL (0.0-0.4); EOS % 3.7 % (1.0-4.0); HEMATOCRIT 26.1 % (37.0-47.0); HEMOGLOBIN 8.3 g/dl (12.0-16.0); LYMPH # 2.1 10*3/uL (1.3-4.4); LYMPH % 24.4 % (27.0-41.0); MEAN CELL VOLUME 91.6 fl (81.0-99.0); MEAN CORPUSCULAR HGB 29.1 pg (27.0-31.0); MEAN CORPUSCULAR HGB CONC 31.8 g/dl (33.0-37.0); MEAN PLATELET VOLUME 9.6 fl (9.6-12.3); MONO % 11.3 % (3.0-9.0); NEUT % 59.7 % (47.0-73.0); PLATELET COUNT AUTOMATED 232 10*3/uL (130-400); RED BLOOD COUNT 2.85 10*6/uL (4.10-5.10); RED CELL DISTRI WIDTH 14.8 % (0-14.5); WHITE BLOOD COUNT 8.4 10*3/uL (4.8-10.8)
--- NOTE | 2017-04-13 20:39 | NUR ---
PRN PAIN MED GIVEN FOR 8/10 LEFT HIP PAIN, PRN DULCOLAX GIVEN FOR CONSTIPATION.
--- NOTE | 2017-04-13 20:45 | NUR ---
DRESSING TO LEFT HIP SATURATED AND COMING LOOSE. DRESSING CHANGE COMPLETED, INCISION CLEANSED WITH BETADINE SWAB, ABD APPLIED, SECURED WITH TAPE. INCISION IS CLEAN AND INTACT, MINIMAL PINKNESS, DRAINAGE MODERATE SEROSANG, NO ODOR. PT TOLERATED WELL.
--- NOTE | 2017-04-13 21:49 | NUR ---
PRN PAIN MED EFFECTIVE FOR LEFT HIP PAIN, PT REPORTS PAIN 6/10.
[2017-04-14] VITALS: BP 113/61
[2017-04-14 06:05] LABS: BASO % 0.2 % (0.0-1.0); EOS # 0.3 10*3/uL (0.0-0.4); EOS % 3.1 % (1.0-4.0); HEMATOCRIT 27.2 % (37.0-47.0); HEMOGLOBIN 8.6 g/dl (12.0-16.0); LYMPH # 2.5 10*3/uL (1.3-4.4); LYMPH % 26.9 % (27.0-41.0); MEAN CELL VOLUME 90.7 fl (81.0-99.0); MEAN CORPUSCULAR HGB 28.7 pg (27.0-31.0); MEAN CORPUSCULAR HGB CONC 31.6 g/dl (33.0-37.0); MONO # 1.1 10*3/uL (0.1-1.0); MONO % 11.8 % (3.0-9.0); NEUT # 5.2 10*3/uL (2.3-7.9); NEUT % 56.9 % (47.0-73.0); PLATELET COUNT AUTOMATED 267 10*3/uL (130-400); RED CELL DISTRI WIDTH 15.9 % (0-14.5); WHITE BLOOD COUNT 9.2 10*3/uL (4.8-10.8)
[2017-04-14 06:33] LABS: BUN 28 mg/dl (7-24); CHLORIDE 109 mmol/L (98-107); CREATININE 1.03 mg/dL (0.55-1.02); POTASSIUM 5.1 mmol/L (3.5-5.1); SODIUM 138 mmol/L (136-145)
[2017-04-14] MEDS ORDERED: NORCO 5-325 TA1 EACH PO (07:34)
[2017-04-14] MEDS ORDERED: XANAX0.5 MG PO (07:34)
[2017-04-14] MEDS ORDERED: MIRALAX17 GM PO (07:50)
--- NOTE | 2017-04-14 07:50 | NUR ---
PT STATES NO BM SINCE ADMISSION, PROVIDED DULCOLAX SUPPOSITORY PER PRN ORDER AND PER DR ORTIZ REQUEST. WILL MONTIOR FOR EFFECTIVENESS. ALSO MEDICATED PT WITH PRN PERCOCET FOR COMPLAINTS OF LEFT HIP PAIN, RATES PAIN 10/10. WILL MONITOR. DRESSING TO LEFT HIP DRY AND INTACT, NO DISTRESS NOTED. CALL LIGHT WITHIN REACH OF PT.
[2017-04-14 08:00] VITALS: BP 139/84
--- NOTE | 2017-04-14 08:51 | NUR ---
CALL PLACED TO DR PRESSLEY OFFICE TO VERIFY HER DISCHARGED RECOMMENDATIONS, HOMEOPATHIC DOCTOR STATES SHE IS IN SURGERY AND TO CALL SURGERY. CALL PLACED TO SURGERY, SHAYNA CASTRO STATES SHE WILL HAVE HER CALL IN BETWEEN CASES.
[2017-04-14] MEDS ORDERED: LOVENOX30 MG/0.3 SC (09:05)
--- NOTE | 2017-04-14 09:06 | NUR ---
DR BOYER CALLED BACK FOR DR COLLINS, STATES TO CONTINUE PT ON LOVENOX 3MG SQ DAILY THRU POD 14. LOVENOX ADDED TO DISCHARGE MED LIST.
--- NOTE | 2017-04-14 09:29 | NUR ---
ASSISTED PT UP TO BSC, PT HAD SMALL BM.
--- NOTE | 2017-04-14 10:20 | NUR ---
PT WAS UP WITH PHYSICAL THERAPY, ABULATED OUT OF DOOR AND BACK TO CHAIR WITH WALKER.
[2017-04-14] MEDS ORDERED: B121000 MCG/1 IM (10:23)
--- NOTE | 2017-04-14 10:23 | NUR ---
DR ORTIZ CALLED IN REGARDING PT, STATE TO ORDER MONTHLY B12 INJECTIONS FOR PT AND TO BE STARTED TODAY AT [facility].
--- NOTE | 2017-04-14 10:24 | NUR ---
PHYSICAL THERAPY Mrs Johnson was seen this AM 1:1 for her therapy session and doing better today. Start with rom to left LE hip, SLR, hip flexion with improvement in rom and pain. Transfer supine/sit MIN A X 1, sitting balance once up CG X 1. Sit/stand and up wheeled walker for standing balance MOD A X 1. Then gait 44' X 1, MOD ELECTRICIAN HELPER POWERHOUSE X 1, with cueing for gait, walker, turn safty and no LOB. Pt up in her bedside chair, call light, phone treatment time 25 min. MITALI PRADHAN GEOLOGY FACULTY MEMBER.
--- NOTE | 2017-04-14 11:15 | NUR ---
NURSE TO NURSE REPORT GIVEN TO MARIAMA AT [facility].
--- NOTE | 2017-04-14 11:17 | NUR ---
PHYSICAL THERAPY CO-SIGN I approve of the Phyical Therapy notes written above. DOROTHY NELSON PT
--- NOTE | 2017-04-14 11:19 | NUR ---
Discharge instructions reviewed with patient/family. Patient receptive and verbalizes understanding. Follow-up care arranged. Written instructions given to patient/family. IV site removed. Pt transported to [facility] via wheelchair, accompanied by staff.
--- NOTE | 2017-04-15 15:02 | NUR ---
OCCUPATIONAL THERAPY CO-SIGN I approve of the Occupational Therapy notes written above. MAXIME KRAMER OTR/Yasmani
== END 2017-04-14 11:19 | disposition other institution (70) | DRG 470 ==
LOC: SDC 01:16 → 5E 08:30 → SDC 09:30 → 5E 04-10 18:50
PROVIDERS: Family Medicine; Internal Medicine; Orthopaedic Surgery; ADMIT Internal Medicine
PROC: 0SRB0JZ Replacement of Left Hip Joint with Synthetic Substitute, Open Approach (ICD-10-PCS; principal; 2017-04-09)
PROC: 30233N1 Transfusion of Nonautologous Red Blood Cells into Peripheral Vein, Percutaneous Approach (ICD-10-PCS; 2017-04-13)
DX: M16.12 Unilateral primary osteoarthritis, left hip (principal); N17.9 Acute kidney failure, unspecified; E44.0 Moderate protein-calorie malnutrition; E11.22 Type 2 diabetes mellitus with diabetic chronic kidney disease; E87.5 Hyperkalemia; E66.9 Obesity, unspecified; B37.2 Candidiasis of skin and nail; D62 Acute posthemorrhagic anemia; K21.9 Gastro-esophageal reflux disease without esophagitis; K57.90 Diverticulosis of intestine, part unspecified, without perforation or abscess without bleeding; K59.03 Drug induced constipation; T40.2X5A Adverse effect of other opioids, initial encounter; I12.9 Hypertensive chronic kidney disease with stage 1 through stage 4 chronic kidney disease, or unspecified chronic kidney disease; E78.2 Mixed hyperlipidemia; N18.3 Chronic kidney disease, stage 3 (moderate); R62.7 Adult failure to thrive; Z68.31 Body mass index [BMI] 31.0-31.9, adult; Y92.89 Other specified places as the place of occurrence of the external cause; Z79.4 Long term (current) use of insulin; Z79.899 Other long term (current) drug therapy; Z83.3 Family history of diabetes mellitus

== ENCOUNTER → 2017-04-27 | Outpatient (CLI) | payer OTHER ==
[~2017-04-27] MED LIST changes: +B121000 MCG/1 IM; +BASAGLAR SC; +MIRALAX17 GM PO; +PROVENTIL HFA6.7 GM INH
== END | disposition home or self-care (01) ==
LOC: ORTHO 02:05
DX: Z47.89 Encounter for other orthopedic aftercare (principal); M16.11 Unilateral primary osteoarthritis, right hip; Z96.642 Presence of left artificial hip joint

== ENCOUNTER → 2017-06-01 | Outpatient (CLI) | payer OTHER | END | disposition home or self-care (01) | LOC: ORTHO 03:28 | DX: M16.12 Unilateral primary osteoarthritis, left hip (principal); Z96.642 Presence of left artificial hip joint ==

== ENCOUNTER → 2017-07-20 | Outpatient (CLI) | payer MEDICAID | END | disposition home or self-care (01) | LOC: ORTHO 00:59 → CT 00:59 → ORTHO 10:52 | DX: R41.3 Other amnesia (principal) ==

== ENCOUNTER → 2017-10-14 | Outpatient (CLI) | payer MEDICAID | END | disposition home or self-care (01) | LOC: ORTHO 02:32 | DX: M16.12 Unilateral primary osteoarthritis, left hip (principal); Z96.642 Presence of left artificial hip joint; Z91.81 History of falling ==

== ENCOUNTER → 2018-01-06 | Outpatient (CLI) | payer OTHER | END | disposition home or self-care (01) | LOC: MAMMO 00:20 | DX: Z12.31 Encounter for screening mammogram for malignant neoplasm of breast (principal); Z13.820 Encounter for screening for osteoporosis; Z78.0 Asymptomatic menopausal state ==

== ENCOUNTER → 2018-04-21 | Outpatient (CLI) | payer OTHER | END | disposition home or self-care (01) | LOC: ORTHO 01:50 | DX: Z47.1 Aftercare following joint replacement surgery (principal); Z96.642 Presence of left artificial hip joint ==

== ENCOUNTER → 2019-01-21 | Outpatient (CLI) | payer MEDICARE, MEDICAID | END | disposition home or self-care (01) | LOC: ORTHO 01:02 | DX: M16.11 Unilateral primary osteoarthritis, right hip (principal); Z96.642 Presence of left artificial hip joint ==

== ENCOUNTER → 2019-06-01 | Outpatient (CLI) | payer MEDICARE, MEDICAID ==
[2019-06-01 13:17] LABS: BASO # 0.1 10*3/uL (0.0-0.1); BASO % 0.7 % (0.0-1.0); EOS # 0.5 10*3/uL (0.0-0.4); EOS % 4.6 % (1.0-4.0); HEMATOCRIT 38.2 % (37.0-47.0); HEMOGLOBIN 12.2 g/dl (12.0-16.0); LYMPH # 2.9 10*3/uL (1.3-4.4); LYMPH % 28.9 % (27.0-41.0); MEAN CELL VOLUME 91.2 fl (81.0-99.0); MEAN CORPUSCULAR HGB 29.1 pg (27.0-31.0); MEAN CORPUSCULAR HGB CONC 31.9 g/dl (33.0-37.0); MEAN PLATELET VOLUME 10.1 fl (9.6-12.3); MONO # 0.7 10*3/uL (0.1-1.0); MONO % 7.1 % (3.0-9.0); NEUT # 5.8 10*3/uL (2.3-7.9); NEUT % 58.3 % (47.0-73.0); PLATELET COUNT AUTOMATED 282 10*3/uL (130-400); RED BLOOD COUNT 4.19 10*6/uL (4.10-5.10); RED CELL DISTRI WIDTH 13.5 % (0-14.5); WHITE BLOOD COUNT 9.9 10*3/uL (4.8-10.8)
[2019-06-01 13:33] LABS: ALBUMIN 3.8 gm/dl (3.1-4.5); CREATININE 1.42 mg/dL (0.55-1.02); FREE T4 0.94 ng/dl (0.76-1.46); POTASSIUM 4.7 mmol/L (3.5-5.1); TOTAL PROTEIN 7.6 gm/dL (6.4-8.2)
[2019-06-01 13:39] LABS: THYROID STIM HORMONE (HS) 1.59 uIU/ml (0.358-4.75)
[2019-06-01 14:06] LABS: VITAMIN D, 25-HYDROXY 67.1 ng/mL (30-100)
== END | disposition home or self-care (01) ==
LOC: LAB 01:35 → ORTHO 01:35
PROVIDERS: Internal Medicine
DX: M25.551 Pain in right hip (principal); E11.22 Type 2 diabetes mellitus with diabetic chronic kidney disease; N18.3 Chronic kidney disease, stage 3 (moderate)

== ENCOUNTER → 2019-07-05 | Outpatient (CLI) | payer MEDICARE, MEDICAID | END | disposition home or self-care (01) | LOC: ORTHO 01:50 | DX: M16.11 Unilateral primary osteoarthritis, right hip (principal) ==

== ENCOUNTER → 2020-05-25 | Outpatient (CLI) | payer MEDICARE ==
[2020-05-25 11:47] LABS: BASO # 0.1 10*3/uL (0.0-0.1); BASO % 0.6 % (0.0-1.0); EOS # 0.3 10*3/uL (0.0-0.4); EOS % 3.7 % (1.0-4.0); HEMATOCRIT 36.7 % (37.0-47.0); LYMPH # 2.4 10*3/uL (1.3-4.4); LYMPH % 26.2 % (27.0-41.0); MEAN CELL VOLUME 91.1 fl (81.0-99.0); MEAN CORPUSCULAR HGB 28.5 pg (27.0-31.0); MEAN CORPUSCULAR HGB CONC 31.3 g/dl (33.0-37.0); MEAN PLATELET VOLUME 9.7 fl (9.6-12.3); MONO # 0.6 10*3/uL (0.1-1.0); MONO % 6.8 % (3.0-9.0); NEUT # 5.6 10*3/uL (2.3-7.9); NEUT % 62.3 % (47.0-73.0); PLATELET COUNT AUTOMATED 266 10*3/uL (130-400); RED BLOOD COUNT 4.03 10*6/uL (4.10-5.10); RED CELL DISTRI WIDTH 14.1 % (0-14.5)
[2020-05-25 12:04] LABS: ALBUMIN 3.7 gm/dl (3.1-4.5); ALKALINE PHOSPHATASE 72 U/L (45-117); BUN 14 mg/dl (7-24); CHLORIDE 110 mmol/L (98-107); CHOLESTEROL 126 mg/dL (<200); CREATININE 1.08 mg/dL (0.55-1.02); FREE T4 1.08 ng/dl (0.76-1.46); HDL CHOLESTEROL 56 mg/dl (40-60); LDL CHOLESTEROL 42 mg/dL (9-159); POTASSIUM 4.2 mmol/L (3.5-5.1); SGOT/AST 21 IU/L (3-35); SGPT/ALT 28 U/L (12-78); SODIUM 140 mmol/L (136-145); TOTAL PROTEIN 7.4 gm/dL (6.4-8.2); TRIGLYCERIDES 138 mg/dl (<150); VLDL CHOLESTEROL 28 mg/dL (6-40)
== END | disposition home or self-care (01) ==
LOC: LAB 11:24
PROVIDERS: ATTEND Internal Medicine
DX: Z00.00 Encounter for general adult medical examination without abnormal findings (principal); I12.9 Hypertensive chronic kidney disease with stage 1 through stage 4 chronic kidney disease, or unspecified chronic kidney disease; E11.22 Type 2 diabetes mellitus with diabetic chronic kidney disease; N18.30 Chronic kidney disease, stage 3 unspecified; E78.2 Mixed hyperlipidemia; E55.9 Vitamin D deficiency, unspecified

== ENCOUNTER → 2021-04-15 | Outpatient (CLI) | payer MEDICARE | END | disposition home or self-care (01) | LOC: MAMMO 00:08 | PROVIDERS: ATTEND Internal Medicine | DX: Z12.31 Encounter for screening mammogram for malignant neoplasm of breast (principal); I65.23 Occlusion and stenosis of bilateral carotid arteries; Z13.820 Encounter for screening for osteoporosis; R42 Dizziness and giddiness; Z78.0 Asymptomatic menopausal state ==

== ENCOUNTER → 2021-05-09 | Outpatient (CLI) | payer MEDICARE ==
[~2021-05-09] MED LIST changes: +DETROL2 MG PO
[2021-05-09 10:08] VITALS: BP 158/87
== END | disposition home or self-care (01) ==
LOC: INJECTION 05-02 10:00
PROVIDERS: ATTEND Internal Medicine
DX: M81.0 Age-related osteoporosis without current pathological fracture (principal); E11.9 Type 2 diabetes mellitus without complications; F32.9 Major depressive disorder, single episode, unspecified; I10 Essential (primary) hypertension; K21.9 Gastro-esophageal reflux disease without esophagitis; E78.00 Pure hypercholesterolemia, unspecified; F41.9 Anxiety disorder, unspecified; J43.9 Emphysema, unspecified

== ENCOUNTER → 2021-12-03 | Outpatient (CLI) | payer MEDICARE | END | disposition home or self-care (01) | LOC: CARD 09:35 | PROVIDERS: ATTEND Internal Medicine | DX: I10 Essential (primary) hypertension (principal) ==

== ENCOUNTER 2022-02-02 17:51 | Emergency (ER) | payer MEDICARE ==
[~2022-02-02] VITALS: Wt 88.0 kg
[2022-02-02 17:57] VITALS: BP 166/87
[2022-02-02] MEDS ORDERED: LANTUS SOL100 UNIT/1 SQ (18:10)
[2022-02-02] MEDS ORDERED: LEVEMIR FL100 UNIT/1 SQ (18:11)
[2022-02-02] MEDS ORDERED: B121000 MCG/1 IM (18:11)
[2022-02-02] MEDS ORDERED: 'CLONIDINE0.1 MG PO (18:11)
[2022-02-02] MEDS ORDERED: FAMOTIDINE20 M1 PO (18:12)
[2022-02-02] MEDS ORDERED: METFORMIN HYD1000 MG PO (18:12)
[2022-02-02] MEDS ORDERED: TRADJENTA5 M1 PO (18:13)
[2022-02-02] MEDS ORDERED: TOLTERODINE TART2 M2 PO (18:13)
[2022-02-02] MEDS ORDERED: VIT D2 1.25 MG (50,0 (18:14)
[2022-02-02] MEDS ORDERED: CEPHALEXIN500 M1 PO (18:15)
[2022-02-02] MEDS ORDERED: ASPIRIN ADULT L81 M2 PO (18:15)
== END 2022-02-02 18:34 | disposition home or self-care (01) ==
LOC: ED 17:51
DX: H57.89 Other specified disorders of eye and adnexa (principal); Z79.899 Other long term (current) drug therapy; Z79.82 Long term (current) use of aspirin; Z90.710 Acquired absence of both cervix and uterus

== ENCOUNTER → 2022-03-27 | Outpatient (CLI) | payer MEDICARE ==
[~2022-03-27] MED LIST changes: +'CLONIDINE0.1 MG PO; +ASPIRIN ADULT L81 M2 PO; +CEPHALEXIN500 M1 PO; +FAMOTIDINE20 M1 PO; +LANTUS SOL100 UNIT/1 SQ; +LEVEMIR FL100 UNIT/1 SQ; +METFORMIN HYD1000 MG PO; +TOLTERODINE TART2 M2 PO; +TRADJENTA5 M1 PO; +VIT D2 1.25 MG (50,0
[2022-03-27 15:15] LABS: BASO # 0.1 10*3/uL (0.0-0.1); BASO % 0.6 % (0.0-1.0); EOS # 0.3 10*3/uL (0.0-0.4); EOS % 2.8 % (1.0-4.0); HEMATOCRIT 34.3 % (37.0-47.0); LYMPH # 2.1 10*3/uL (1.3-4.4); LYMPH % 21.7 % (27.0-41.0); MEAN CELL VOLUME 91.5 fl (81.0-99.0); MEAN CORPUSCULAR HGB 29.1 pg (27.0-31.0); MEAN CORPUSCULAR HGB CONC 31.8 g/dl (33.0-37.0); MEAN PLATELET VOLUME 10.1 fl (9.6-12.3); MONO # 0.7 10*3/uL (0.1-1.0); MONO % 6.7 % (3.0-9.0); NEUT # 6.6 10*3/uL (2.3-7.9); NEUT % 67.8 % (47.0-73.0); PLATELET COUNT AUTOMATED 252 10*3/uL (130-400); RED BLOOD COUNT 3.75 10*6/uL (4.10-5.10); WHITE BLOOD COUNT 9.8 10*3/uL (4.8-10.8)
[2022-03-27 15:44] LABS: CREATININE 1.44 mg/dL (0.55-1.02); FREE T4 0.93 ng/dl (0.76-1.46); POTASSIUM 4.8 mmol/L (3.5-5.1); TOTAL PROTEIN 7.1 gm/dL (6.4-8.2)
[2022-03-27 15:48] LABS: THYROID STIM HORMONE (HS) 2.45 uIU/ml (0.358-4.75)
== END | disposition home or self-care (01) ==
LOC: LAB 14:50
PROVIDERS: ATTEND Internal Medicine
DX: E11.65 Type 2 diabetes mellitus with hyperglycemia (principal); D51.0 Vitamin B12 deficiency anemia due to intrinsic factor deficiency; I10 Essential (primary) hypertension; Z13.0 Encounter for screening for diseases of the blood and blood-forming organs and certain disorders involving the immune mechanism; Z13.89 Encounter for screening for other disorder; Z13.1 Encounter for screening for diabetes mellitus; Z13.21 Encounter for screening for nutritional disorder; Z13.220 Encounter for screening for lipoid disorders; Z13.228 Encounter for screening for other metabolic disorders; Z13.6 Encounter for screening for cardiovascular disorders; Z13.9 Encounter for screening, unspecified; E55.9 Vitamin D deficiency, unspecified

== ENCOUNTER → 2022-04-18 | Outpatient (CLI) | payer MEDICARE | END | disposition home or self-care (01) | LOC: MRI 09:45 | PROVIDERS: ATTEND Internal Medicine | DX: I67.82 Cerebral ischemia (principal); I65.23 Occlusion and stenosis of bilateral carotid arteries ==

== ENCOUNTER → 2022-10-08 | Outpatient (CLI) | payer MEDICARE | END | disposition home or self-care (01) | LOC: CARD 10:00 | PROVIDERS: ATTEND Internal Medicine | DX: R07.9 Chest pain, unspecified (principal); R06.02 Shortness of breath ==

== ENCOUNTER 2023-12-08 10:06 | Inpatient (IN) | payer MEDICARE ==
[~2023-12-08] VITALS: Ht 160 cm; Wt 83.9 kg
[2023-12-08] MEDS ORDERED: SODIUM CHLORIDE 0.9% 1,000 ML IV ONE (10:15)
[2023-12-08 10:17] VITALS: BP 105/44
[2023-12-08 10:26] LABS: HEMATOCRIT 34.7 % (37.0-47.0); MEAN CELL VOLUME 89.7 fl (81.0-99.0); MEAN CORPUSCULAR HGB 27.9 pg (27.0-31.0); MEAN CORPUSCULAR HGB CONC 31.1 g/dl (33.0-37.0); MEAN PLATELET VOLUME 9.7 fl (9.6-12.3); PLATELET COUNT AUTOMATED 297 10*3/uL (130-400); RED BLOOD COUNT 3.87 10*6/uL (4.10-5.10); RED CELL DISTRI WIDTH 15.1 % (0-14.5); WHITE BLOOD COUNT 13.4 10*3/uL (4.8-10.8)
[2023-12-08 10:28] LABS: MANUAL DIFF REFLEX YES
[2023-12-08 10:41] LABS: ACT PARTIAL THROMBO TIME 28.3 SECONDS (20.0-32.1)
[2023-12-08 10:47] LABS: POTASSIUM 4.7 mmol/L (3.4-5.1); TOTAL PROTEIN 7.1 gm/dL (6.0-8.0)
[2023-12-08] MEDS ORDERED: SODIUM CHLORIDE 0.9% 1,000 ML IV SCH (11:05)
[2023-12-08 11:14] LABS: BASOPHILS 1 % (0-1); PLATELET SUFFICIENCY NORMAL (NORMAL); TOTAL CELLS COUNTED 100 #CELLS
[2023-12-08] MEDS ORDERED: Ceftriaxone Sodium 1 GM/10 ML SYR IV ONE (12:10)
[2023-12-08 13:16] LABS: BILIRUBIN Negative (Negative); BLOOD Negative (Negative); CLARITY Clear (Clear); COLOR Yellow (Yellow); GLUCOSE Negative (Negative); KETONE Negative (Negative); LEUKO ESTERASE 1+ (Negative); NITRITE Negative (Negative); SPECIFIC GRAVITY 1.015 (1.001-1.030); UROBILINOGEN 0.2 E.U./dl (0.0-1.0)
[2023-12-08 13:23] LABS: BACTERIA 2+; RBC 0-2 rbc/hpf (0-2); WBC 21-30 wbc/hpf (0-5)
[2023-12-08] MEDS ORDERED: MAGNESIUM SULFATE 100 ML IV ONE (13:50)
[2023-12-08 15:53] VITALS: BP 140/67
[2023-12-08] MEDS ORDERED: AMLODIPINE BES2.5 MG PO (16:00)
[2023-12-08] MEDS ORDERED: LANTUS SOL100 UNIT/1 SC (16:01)
[2023-12-08] MEDS ORDERED: cloNIDine Hydrochloride 0.1 MG TAB PO PRN (16:40)
[2023-12-08 19:04] VITALS: BP 112/74
[2023-12-08] MEDS ORDERED: ACETAMINOPHEN 500 MG TAB PO SCH (20:00)
[2023-12-08] MEDS ORDERED: Piperacillin Sodium/Tazobact 2.25 GM in SODIUM CHLORIDE 0.9% 50 ML IV SCH (20:00)
[2023-12-08 20:02] VITALS: BP 112/74
[2023-12-08 21:10] VITALS: BP 136/69
[2023-12-08] MEDS ORDERED: SIMVASTATIN 20 MG TAB PO SCH (22:00)
[2023-12-09 02:30] VITALS: BP 132/78
[2023-12-09 02:50] VITALS: BP 104/72
[2023-12-09 06:42] LABS: BASO % 0.2 % (0.0-1.0); EOS # 0.1 10*3/uL (0.0-0.4); EOS % 0.8 % (1.0-4.0); HEMATOCRIT 29.4 % (37.0-47.0); LYMPH # 1.1 10*3/uL (1.3-4.4); LYMPH % 10.5 % (27.0-41.0); MEAN CELL VOLUME 90.7 fl (81.0-99.0); MEAN CORPUSCULAR HGB 28.1 pg (27.0-31.0); MEAN PLATELET VOLUME 9.9 fl (9.6-12.3); MONO # 0.6 10*3/uL (0.1-1.0); MONO % 5.4 % (3.0-9.0); NEUT # 8.6 10*3/uL (2.3-7.9); NEUT % 82.4 % (47.0-73.0); PLATELET COUNT AUTOMATED 221 10*3/uL (130-400); RED BLOOD COUNT 3.24 10*6/uL (4.10-5.10); RED CELL DISTRI WIDTH 15.1 % (0-14.5); WHITE BLOOD COUNT 10.5 10*3/uL (4.8-10.8)
[2023-12-09 07:00] LABS: POTASSIUM 4.7 mmol/L (3.4-5.1)
[2023-12-09 08:00] VITALS: BP 140/100
[2023-12-09] MEDS ORDERED: ASPIRIN ENTERIC COATED 81 MG TAB PO SCH (10:00)
[2023-12-09] MEDS ORDERED: Ceftriaxone Sodium 2 GM,IV 1 EA in SYRINGE INFUSION 20 ML IV SCH (10:00)
[2023-12-09] MEDS ORDERED: amLODIPine besylate 2.5 MG TAB PO SCH (10:00)
[2023-12-09] MEDS ORDERED: Insulin Glargine, Recombinan 1 UNIT/0.01 ML SC SCH (10:00)
[2023-12-09] MEDS ORDERED: LINAGLIPTIN 5 MG TAB PO SCH (10:00)
[2023-12-09 12:00] VITALS: BP 142/99
[2023-12-09 16:00] VITALS: BP 127/61
[2023-12-09 20:00] VITALS: BP 146/78
[2023-12-10] VITALS: BP 142/70
[2023-12-10 06:23] LABS: BASO % 0.3 % (0.0-1.0); EOS # 0.3 10*3/uL (0.0-0.4); HEMATOCRIT 27.9 % (37.0-47.0); LYMPH % 22.9 % (27.0-41.0); MEAN CORPUSCULAR HGB 28.7 pg (27.0-31.0); MEAN CORPUSCULAR HGB CONC 31.9 g/dl (33.0-37.0); MEAN PLATELET VOLUME 10.2 fl (9.6-12.3); MONO # 1.4 10*3/uL (0.1-1.0); MONO % 15.7 % (3.0-9.0); NEUT % 57.5 % (47.0-73.0); PLATELET COUNT AUTOMATED 209 10*3/uL (130-400); RED CELL DISTRI WIDTH 15.4 % (0-14.5); WHITE BLOOD COUNT 8.7 10*3/uL (4.8-10.8)
[2023-12-10 06:35] LABS: POTASSIUM 4.3 mmol/L (3.4-5.1)
[2023-12-10 08:00] VITALS: BP 140/79
[2023-12-10 12:00] VITALS: BP 127/80
[2023-12-10 16:00] VITALS: BP 140/69
[2023-12-10 20:00] VITALS: BP 152/65
[2023-12-11] VITALS: BP 148/62
[2023-12-11] MEDS ORDERED: LEVOFLOXACIN750 M2 PO (00:42)
[2023-12-11] MEDS ORDERED: Ondansetron Hydrochloride 4 MG/2 ML VIAL IV PRN (03:40)
[2023-12-11 06:17] LABS: BASO % 0.3 % (0.0-1.0); EOS # 0.2 10*3/uL (0.0-0.4); HEMATOCRIT 28.8 % (37.0-47.0); LYMPH # 1.7 10*3/uL (1.3-4.4); LYMPH % 21.8 % (27.0-41.0); MEAN CELL VOLUME 90.9 fl (81.0-99.0); MEAN CORPUSCULAR HGB 27.8 pg (27.0-31.0); MEAN CORPUSCULAR HGB CONC 30.6 g/dl (33.0-37.0); MONO # 0.8 10*3/uL (0.1-1.0); MONO % 9.8 % (3.0-9.0); NEUT % 64.3 % (47.0-73.0); PLATELET COUNT AUTOMATED 247 10*3/uL (130-400); RED BLOOD COUNT 3.17 10*6/uL (4.10-5.10); RED CELL DISTRI WIDTH 15.6 % (0-14.5); WHITE BLOOD COUNT 7.7 10*3/uL (4.8-10.8)
[2023-12-11 06:32] LABS: POTASSIUM 4.9 mmol/L (3.4-5.1)
[2023-12-11 08:00] VITALS: BP 122/64
[2023-12-11] MEDS ORDERED: LEVOFLOXACIN 750 MG TAB PO ONE (10:00)
[2023-12-11 12:00] VITALS: BP 131/66
[2023-12-11] MEDS ORDERED: SODIUM CHLORIDE 0.9% 1,000 ML IV ONE (13:05)
[2023-12-11 16:00] VITALS: BP 132/62
[2023-12-11 20:00] VITALS: BP 157/88
[2023-12-12] VITALS: BP 132/54
[2023-12-12 08:00] VITALS: BP 154/78
[2023-12-12] MEDS ORDERED: METOPROLOL SUCCINATE XR 25 MG TAB PO SCH (10:00)
[2023-12-12 12:00] VITALS: BP 157/62
[2023-12-12 16:00] VITALS: BP 161/94
== END 2023-12-12 19:15 | disposition short-term general hospital (02) | DRG 871 ==
LOC: ED 10:06 → 4E 14:01 → EDHOLD 14:01 → 4E 12-09 01:50
PROVIDERS: Internal Medicine; ADMIT Internal Medicine; ATTEND Internal Medicine
DX: A41.9 Sepsis, unspecified organism (principal); N17.0 Acute kidney failure with tubular necrosis; E44.0 Moderate protein-calorie malnutrition; N18.4 Chronic kidney disease, stage 4 (severe); N13.6 Pyonephrosis; N12 Tubulo-interstitial nephritis, not specified as acute or chronic; R65.20 Severe sepsis without septic shock; E78.2 Mixed hyperlipidemia; F41.1 Generalized anxiety disorder; J44.9 Chronic obstructive pulmonary disease, unspecified; Z96.652 Presence of left artificial knee joint; E66.9 Obesity, unspecified; E83.42 Hypomagnesemia; K21.9 Gastro-esophageal reflux disease without esophagitis; E11.22 Type 2 diabetes mellitus with diabetic chronic kidney disease; I12.9 Hypertensive chronic kidney disease with stage 1 through stage 4 chronic kidney disease, or unspecified chronic kidney disease; I49.3 Ventricular premature depolarization; D64.9 Anemia, unspecified; Z98.42 Cataract extraction status, left eye; Z98.41 Cataract extraction status, right eye; Z90.710 Acquired absence of both cervix and uterus; Z90.49 Acquired absence of other specified parts of digestive tract; Z98.51 Tubal ligation status; Z83.3 Family history of diabetes mellitus; Z68.32 Body mass index [BMI] 32.0-32.9, adult

== ENCOUNTER 2023-12-19 02:08 | Emergency (ER) | payer MEDICARE ==
[~2023-12-19] VITALS: Ht 160 cm; Wt 82.1 kg
[~2023-12-19 02:08] MED LIST changes: +AMLODIPINE BES2.5 MG PO; +LANTUS SOL100 UNIT/1 SC; +LEVOFLOXACIN750 M2 PO
[2023-12-19] MEDS ORDERED: ATARAX,VISTARIL50 MG PO (02:21)
[2023-12-19 04:15] VITALS: BP 122/79
== END 2023-12-19 04:09 | disposition home or self-care (01) ==
LOC: ED 02:08
DX: E11.649 Type 2 diabetes mellitus with hypoglycemia without coma (principal); I25.2 Old myocardial infarction; Z90.711 Acquired absence of uterus with remaining cervical stump; Z90.49 Acquired absence of other specified parts of digestive tract; Z98.51 Tubal ligation status; Z79.899 Other long term (current) drug therapy; Z79.82 Long term (current) use of aspirin

== ENCOUNTER → 2024-05-17 | Outpatient (CLI) | payer MEDICARE ==
[~2024-05-17] MED LIST changes: +ATARAX,VISTARIL50 MG PO
== END | disposition home or self-care (01) ==
LOC: US 05-16 11:00
PROVIDERS: ATTEND Internal Medicine Nephrology
DX: N20.0 Calculus of kidney (principal); N13.30 Unspecified hydronephrosis; N28.1 Cyst of kidney, acquired; N32.89 Other specified disorders of bladder

== ENCOUNTER → 2024-06-06 | Outpatient (CLI) | payer MEDICARE ==
[2024-06-06 16:33] LABS: TOTAL PROTEIN 7.2 gm/dL (6.0-8.0)
== END | disposition home or self-care (01) ==
LOC: LAB 15:46
PROVIDERS: ATTEND Internal Medicine Nephrology
DX: N18.31 Chronic kidney disease, stage 3a (principal); N20.0 Calculus of kidney

== ENCOUNTER → 2024-06-10 | Outpatient (CLI) | payer MEDICARE ==
[2024-06-16 01:06] LABS: CALCIUM PHOSPHATE SATURATION 0.05 (0.50-2.00); CALCIUM, OXALATE SATURATION 1.34 (6.00-10.00); CALCIUM/CREATININE RATIO 43 (51-262); CREATININE/KG BODY WEIGHT 20.1 (8.7-20.3); CYSTINE,URINE,QUAL Neg (Negative); URIC ACID SATURATION 1.31 (<1.00); URINE CALCIUM 72 mg/24 hr (<200); URINE CITRATE 245 mg/24 hr (>550); URINE CREATININE 1678 mg/24 hr (Not Applic.); URINE MAGNESIUM 106 mg/24 hr (30-120); URINE OXALATE 35 mg/24 hr (20-40); URINE PH 24 HR 5.307 (5.800-6.200); URINE POTASSIUM 75 (20-100); URINE SODIUM 223 (50-150); URINE UREA NITROGEN 10.64 g/24 hr (6.00-14.00); URINE URIC ACID 702 mg/24 hr (<750); URINE VOLUME PRESERVED 3140 mL/24 hr (500-4000)
== END | disposition home or self-care (01) ==
LOC: LAB 16:06
PROVIDERS: ATTEND Internal Medicine Nephrology
DX: N18.31 Chronic kidney disease, stage 3a (principal); N20.0 Calculus of kidney

== ENCOUNTER → 2024-06-13 | Outpatient (CLI) | payer MEDICARE | END | disposition home or self-care (01) | LOC: LAB 12:37 | PROVIDERS: ATTEND Internal Medicine Nephrology | DX: N18.31 Chronic kidney disease, stage 3a (principal); N20.0 Calculus of kidney ==

== ENCOUNTER → 2024-08-04 | Outpatient (CLI) | payer MEDICARE ==
[2024-08-04 17:47] LABS: POTASSIUM 4.9 mmol/L (3.4-5.1)
== END | disposition home or self-care (01) ==
LOC: LAB 16:47
PROVIDERS: ATTEND Internal Medicine Nephrology
DX: N20.0 Calculus of kidney (principal)